=== PATIENT | male | born 1950 | race Caucasian/White ===

== ENCOUNTER 2020-10-13 09:28 | Inpatient (IN) | payer MEDICARE ==
[~2020-10-13] VITALS: Ht 182.9 cm; Wt 101.2 kg
[2020-10-13 10:39] LABS: HEMOGLOBIN 13.8 gm/dl (14.0-17.5); RED BLOOD COUNT 4.33 M/UL (4.20-5.50); WHITE BLOOD COUNT 9.9 K/UL (4.5-11.0)
[2020-10-13 11:12] LABS: BUN/CREATININE RATIO 22 (0-10)
[2020-10-13] MEDS ORDERED: FLONASE 0.05% N16 GM (12:57)
[2020-10-13] MEDS ORDERED: DOXYCYCLINE MO100 MG PO (12:57)
[2020-10-13] MEDS ORDERED: GABAPENTIN400 MG PO (12:58)
[2020-10-13] MEDS ORDERED: VITAMIN B-121000 MC3 PO (12:59)
[2020-10-13] MEDS ORDERED: MOBIC15 MG PO (12:59)
[2020-10-13] MEDS ORDERED: ADULT LOW DOSE81 MG PO (12:59)
[2020-10-13] MEDS ORDERED: SINGULAIR10 MG PO (12:59)
[2020-10-13] MEDS ORDERED: CRESTOR20 MG PO (13:01)
[2020-10-13] MEDS ORDERED: INSULIN PUMP NOVOLOG INJ (13:01)
[2020-10-13] MEDS ORDERED: LASIX20 MG PO (13:02)
[2020-10-13] MEDS ORDERED: CLARITIN10 MG PO (13:02)
[2020-10-15 04:15] LABS: HEMOGLOBIN 12.2 gm/dl (14.0-17.5); RED BLOOD COUNT 3.9 M/UL (4.20-5.50)
[2020-10-15 04:16] LABS: WHITE BLOOD COUNT 6.8 K/UL (4.5-11.0)
[2020-10-16 04:29] LABS: HEMOGLOBIN 12.1 gm/dl (14.0-17.5); RED BLOOD COUNT 3.87 M/UL (4.20-5.50); WHITE BLOOD COUNT 6.2 K/UL (4.5-11.0)
[2020-10-16 04:48] LABS: BUN/CREATININE RATIO 21 (0-10)
[2020-10-18 06:16] LABS: BUN/CREATININE RATIO 17 (0-10)
[2020-10-18 06:17] LABS: HEMOGLOBIN 12.8 gm/dl (14.0-17.5); RED BLOOD COUNT 4.1 M/UL (4.20-5.50); WHITE BLOOD COUNT 5.2 K/UL (4.5-11.0)
[2020-10-19 06:26] LABS: BUN/CREATININE RATIO 21 (0-10)
[2020-10-19 06:30] LABS: HEMOGLOBIN 13.2 gm/dl (14.0-17.5); RED BLOOD COUNT 4.2 M/UL (4.20-5.50)
[2020-10-19 06:35] LABS: WHITE BLOOD COUNT 8.4 K/UL (4.5-11.0)
--- NOTE | 2020-10-20 13:03 | NUR ---
10/20/20 1245 RECEIVED CALL FROM OR TO SEE IF PATIENT WAS READY FOR SURGERY, HE HAS BEEN NPO SINCE MIDNIGHT NO CONSENT WAS OBTAINED AND OR STAFF NOTIFIED, NURSE WAS NOT INFORMED OF WHAT PROCEDURE PATIENT WAS HAVING DONE, UNIVERSAL PROTOCAL FORM COMPLETED, PT AND IS AWARE AMD WILL SIGN CONSENT IN THE OR DEPT. DR CERNA HAD DISCUSSED WITH THEM THE PROCEDURE PREVIOUSLY PER . HALEIGH BAXTER NURSE MANAGER PROVIDER RELATIONS AWARE
[2020-10-20] MEDS ORDERED: FISH OIL EC 1,1 EACH PO (19:54)
[2020-10-20] MEDS ORDERED: LOPRESSOR 25 MG25 MG PO (19:57)
[2020-10-20] MEDS ORDERED: PLAVIX 75 MG TA75 MG PO (19:57)
[2020-10-21 02:48] LABS: RED BLOOD COUNT 3.82 M/UL (4.20-5.50); WHITE BLOOD COUNT 9.6 K/UL (4.5-11.0)
[2020-10-21 03:08] LABS: BUN/CREATININE RATIO 22 (0-10)
[2020-10-21] MEDS ORDERED: INVANZ 1 GM VIAL1 GM IM (14:10)
[2020-10-21] MEDS ORDERED: NOVOLOG FL100 UNIT/1 INJ (15:03)
[2020-10-21] MEDS ORDERED: EASY TOUCH SQ (15:03)
[2020-10-21] MEDS ORDERED: LANTUS SOL100 UNIT/1 SQ (15:03)
[2020-10-21] MEDS ORDERED: PERCOCET 10-321 EACH PO ×2 (15:03→15:30)
[2020-10-21] MEDS ORDERED: INVANZ 1 GM VIAL1 GM IV (15:27)
--- NOTE | 2020-10-22 14:11 | NUR ---
1400: SPOKE WITH DR CERNA REGARDING PATIENT DISCHARGE; OK TO DISCHARGE PATIENT PLANNED. 1410: RN NOTIFIED [employer] OF DISCHARGE AND NEED FOR NEXT DOSE OF UNASYN TO BE GIVEN AT 1800; AFTER BEING PLACED ON HOLD FOR > 20 MINUTES; RN GAVE NUMBER FOR ON-CALL RN OR PHARMACISTS TO RETURN CALL. 1435: RN CALLED [facility] REGARDING NEW PATIENT REPORT; LEFT MESSAGE FOR ON-CALL RN TO RETURN CALL.
== END 2020-10-22 15:15 | disposition home health service (06) | DRG 253 ==
LOC: ER1 09:28 → CDU 11:41 → MED SURG 4 11:41
PROVIDERS: Internal Medicine; Internal Medicine Interventional Cardiology; Physician Assistant; Physician Assistant Medical; Podiatrist Foot & Ankle Surgery; ADMIT Internal Medicine Infectious Disease
PROC: B24BZZZ Ultrasonography of Heart with Aorta (ICD-10-PCS; 2020-10-13)
PROC: 047K3Z1 Dilation of Right Femoral Artery using Drug-Coated Balloon, Percutaneous Approach (ICD-10-PCS; 2020-10-18)
PROC: 047P3Z1 Dilation of Right Anterior Tibial Artery using Drug-Coated Balloon, Percutaneous Approach (ICD-10-PCS; 2020-10-18)
PROC: 047M3Z1 Dilation of Right Popliteal Artery using Drug-Coated Balloon, Percutaneous Approach (ICD-10-PCS; 2020-10-18)
PROC: 047T3Z1 Dilation of Right Peroneal Artery using Drug-Coated Balloon, Percutaneous Approach (ICD-10-PCS; 2020-10-18)
PROC: 0HRMXK3 Replacement of Right Foot Skin with Nonautologous Tissue Substitute, Full Thickness, External Approach (ICD-10-PCS; 2020-10-20)
PROC: 0QBQ0ZZ Excision of Right Toe Phalanx, Open Approach (ICD-10-PCS; 2020-10-20)
PROC: 0Y6V0Z0 Detachment at Right 4th Toe, Complete, Open Approach (ICD-10-PCS; principal; 2020-10-20 13:00)
PROC: 02HV33Z Insertion of Infusion Device into Superior Vena Cava, Percutaneous Approach (ICD-10-PCS; 2020-10-21)
PROC: B548ZZA Ultrasonography of Superior Vena Cava, Guidance (ICD-10-PCS; 2020-10-21)
DX: E11.52 Type 2 diabetes mellitus with diabetic peripheral angiopathy with gangrene (principal); M86.8X7 Other osteomyelitis, ankle and foot; I50.42 Chronic combined systolic (congestive) and diastolic (congestive) heart failure; I96 Gangrene, not elsewhere classified; E11.69 Type 2 diabetes mellitus with other specified complication; Z20.822 Contact with and (suspected) exposure to COVID-19; E11.621 Type 2 diabetes mellitus with foot ulcer; E11.40 Type 2 diabetes mellitus with diabetic neuropathy, unspecified; D64.9 Anemia, unspecified; E11.319 Type 2 diabetes mellitus with unspecified diabetic retinopathy without macular edema; E78.5 Hyperlipidemia, unspecified; Z96.41 Presence of insulin pump (external) (internal); J30.2 Other seasonal allergic rhinitis; E66.9 Obesity, unspecified; H54.7 Unspecified visual loss; Z98.41 Cataract extraction status, right eye; Z89.422 Acquired absence of other left toe(s); Z83.3 Family history of diabetes mellitus; Z68.30 Body mass index [BMI] 30.0-30.9, adult; Z79.82 Long term (current) use of aspirin; Z82.49 Family history of ischemic heart disease and other diseases of the circulatory system; Z79.4 Long term (current) use of insulin; Z79.899 Other long term (current) drug therapy; G47.33 Obstructive sleep apnea (adult) (pediatric)
CPT/HCPCS: ECHO; 36415; 73620; 73630; 73718; 75630; 78452; 80048; 80053; 82550; 82553; 82962; 83036; 83605; 83735; 84484; 85018; 85025; 85027; 85347; 85652; 86140; 86850; 86900; 86901; 87040; 87070; 87077; 87186; 87205; 93005; 93017; 93306; 96365; 96366; 96367; 96372; 96375; 97161; 99152; 99153; 99285; A9502; C1725; C1769; C2623; J0295; J0360; J1100; J1335; J1644; J1650; J2001; J2250; J2405; J2543; J2704; J2720; J2785; J2795; J3010; J3370; J7040; J7070; J7120; Q4133; Q9962; Q9965; U0002

== ENCOUNTER → 2020-11-07 | Outpatient (CLI) | payer MEDICARE ==
[~2020-11-07] MED LIST: ADULT LOW DOSE81 MG PO; CLARITIN10 MG PO; CRESTOR20 MG PO; DOXYCYCLINE MO100 MG PO; EASY TOUCH SQ; FISH OIL EC 1,1 EACH PO; FLONASE 0.05% N16 GM; GABAPENTIN400 MG PO; INSULIN PUMP NOVOLOG INJ; INVANZ 1 GM VIAL1 GM IM; INVANZ 1 GM VIAL1 GM IV; LANTUS SOL100 UNIT/1 SQ; LASIX20 MG PO; LOPRESSOR 25 MG25 MG PO; MOBIC15 MG PO; NOVOLOG FL100 UNIT/1 INJ; PERCOCET 10-321 EACH PO; PLAVIX 75 MG TA75 MG PO; SINGULAIR10 MG PO; VITAMIN B-121000 MC3 PO
== END ==
LOC: WCC 09:00
DX: Z53.9 Procedure and treatment not carried out, unspecified reason (principal)

== ENCOUNTER → 2020-11-16 | Outpatient (CLI) | payer MEDICARE, OTHER | LOC: OPSV 11:00 | DX: E11.69 Type 2 diabetes mellitus with other specified complication (principal); M86.9 Osteomyelitis, unspecified; B95.62 Methicillin resistant Staphylococcus aureus infection as the cause of diseases classified elsewhere; E11.621 Type 2 diabetes mellitus with foot ulcer; L97.519 Non-pressure chronic ulcer of other part of right foot with unspecified severity; E11.319 Type 2 diabetes mellitus with unspecified diabetic retinopathy without macular edema; E11.51 Type 2 diabetes mellitus with diabetic peripheral angiopathy without gangrene; E11.42 Type 2 diabetes mellitus with diabetic polyneuropathy; M19.90 Unspecified osteoarthritis, unspecified site; Z89.422 Acquired absence of other left toe(s); Z89.421 Acquired absence of other right toe(s); Z96.41 Presence of insulin pump (external) (internal) | CPT/HCPCS: G0463 ==

== ENCOUNTER → 2020-12-12 | Outpatient (CLI) | payer MEDICARE, OTHER | LOC: EXRD 11-28 13:00 | DX: I73.9 Peripheral vascular disease, unspecified (principal); R93.89 Abnormal findings on diagnostic imaging of other specified body structures | CPT/HCPCS: 93922; 93925 ==